=== PATIENT | female | born 1970 | race Caucasian/White ===

== ENCOUNTER 2020-06-11 12:01 | Emergency (ER) | payer BC ==
[2020-06-11 12:09] VITALS: BP 115/78; PULSE 109; RESP 18; TEMP 98
--- NOTE | 2020-06-11 12:19 | ED ---
URI HPI - General Chief Complaint: Upper Respiratory Infection Stated Complaint: COVID exposure Time Seen by Provider: 06/11/20 12:12 Source: patient, RN notes reviewed Mode of arrival: ambulatory Limitations: no limitations - History of Present Illness Initial Comments: This is a 50-year-old female presents emergency Department with chief complaint of fever cough congestion bodies. Patient states symptoms started last 24 hours. 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 Patient states that she is concerned she may have contracted a virus. Patient states that she has noted decreasing states she has temp 101 this morning. Patient denies any significant headache, neck pain or neck stiffness. Patient has no history of asthma. Patient states she did take some prednisone as she had left over from recurrent bronchitis. Patient denies any GI symptoms. - Related Data Allergies Allergy/AdvReac Type Severity Reaction Status Date / Time No Known Allergies Allergy Verified 06/11/20 12:09 Review of Systems ROS Statement: Those systems with pertinent positive or pertinent negative responses have been documented in the HPI. ROS Other: All systems not noted in ROS Statement are negative. Past Medical History Past Medical History: No Reported History Additional Past Medical History / Comment(s): allergies History of Any Multi-Drug Resistant Organisms: None Reported Additional Past Surgical History / Comment(s): fallopian tube and ovary removed Past Psychological History: No Psychological Hx Reported Smoking Status: Never smoker Past Alcohol Use History: None Reported Past Drug Use History: None Reported General Exam Limitations: no limitations General appearance: alert, in no apparent distress Head exam: Present: atraumatic, normocephalic, normal inspection Eye exam: Present: normal appearance, PERRL, EOMI. Absent: scleral icterus, conjunctival injection, periorbital swelling ENT exam: Present: normal exam, normal oropharynx, mucous membranes moist Neck exam: Present: normal inspection, full ROM. Absent: tenderness, meningismus, lymphadenopathy Respiratory exam: Present: normal lung sounds bilaterally. Absent: respiratory distress, wheezes, rales, rhonchi, stridor Cardiovascular Exam: Present: regular rate, normal rhythm, normal heart sounds. Absent: systolic murmur, diastolic murmur, rubs, gallop, clicks GI/Abdominal exam: Present: soft, normal bowel sounds. Absent: distended, tenderness, guarding, rebound, rigid Neurological exam: Present: alert, oriented X3, CN II-XII intact Skin exam: Present: warm, dry, intact, normal color. Absent: rash Course Vital Signs 06/11/20 12:06 Temperature 98.0 F Pulse Rate 109 H Respiratory 18 Rate Blood Pressure 115/78 O2 Sat by Pulse 98 Oximetry Medical Decision Making - Medical Decision Making 50-year-old female presented for URI symptoms. Patient had rapid covid testing, pending results. Return parameters were discussed. Disposition Clinical Impression: Encounter for laboratory testing for COVID-19 virus Disposition: HOME SELF-CARE Condition: Stable Instructions (If sedation given, give patient instructions): Upper Respiratory Infection (ED) Additional Instructions: Please return to the Emergency Department if symptoms worsen or any other concerns. Is patient prescribed a controlled substance at d/c from ED?: No Referrals: Bogdan Newsome DO [Primary Care Provider] - 1-2 days Time of Disposition: 12:19
== END 2020-06-11 12:31 | disposition home or self-care (01) ==
LOC: EC 12:01
DX: U07.1 COVID-19 (principal)
CPT/HCPCS: 87635; 99283